=== PATIENT | male | born 1985 | race African-American/Black ===

== ENCOUNTER 2016-07-28 11:01 | Emergency (ER) | payer OTHER ==
[~2016-07-28] VITALS: Ht 170.2 cm; Wt 110.5 kg
[~2016-07-28 11:01] MED LIST: MOTRIN600 MG PO; NORCO 5/3251 TABLET PO; PEN-VEE K,VEET500 MG PO; ULTRAM50 MG PO; ZOFRAN8 MG PO
[2016-07-28] MEDS ORDERED: FLEXERIL5 MG PO (13:40)
[2016-07-28] MEDS ORDERED: MOTRIN600 MG PO (13:40)
[2016-07-28 13:59] VITALS: BP 132/75
== END 2016-07-28 14:01 | disposition home or self-care (01) ==
LOC: EME 11:01
PROC: 3E0234Z Introduction of Serum, Toxoid and Vaccine into Muscle, Percutaneous Approach (ICD-10-PCS; principal; 2016-07-28)
DX: S06.0X0A Concussion without loss of consciousness, initial encounter (principal); S00.03XA Contusion of scalp, initial encounter; S43.402A Unspecified sprain of left shoulder joint, initial encounter; M54.5 Low back pain; V00.131A Fall from skateboard, initial encounter; Y93.51 Activity, roller skating (inline) and skateboarding; F17.200 Nicotine dependence, unspecified, uncomplicated
CPT/HCPCS: 70450; 72125; 99281; 99284; J2270